=== PATIENT | female | born 1995 | race Hispanic/Latino ===

== ENCOUNTER → 2018-01-01 15:26 | Outpatient (CLI) | payer OTHER, SELFPAY ==
--- NOTE | 2018-01-01 15:27 | DI.US.S_ITS ---
PROCEDURE: US PELVIC COMPLETE INDICATIONS: bleeding with intercourse, left-sided pelvic pain TECHNIQUE: Real-time scanning was performed of the pelvic organs, with image documentation. Additional endovaginal scanning was necessary due to incomplete visualization of the adnexal and endometrial structures by transabdominal scanning. COMPARISON: [facility], , PELVIC COMPLETE, 03/07/2017, 8:37. FINDINGS: Transabdominal scanning: Limited scanning through the kidneys shows no hydronephrosis. No pathologic free abdominal or pelvic fluid. Endovaginal scanning: Uterus: Uterus is normal in size at 8.2 x 2.6 x 4.3 cm. no focal myometrial lesions are identified. Endometrial echo stripe measures approximately 3 mm in maximal combined thickness. An intrauterine contraceptive device is positioned within the endometrial cavity, which is noted to penetrate the endometrial cavity and extend into the myometrium to the right of midline within the mid fundal region. Ovaries: The right ovary measures 2.4 x 1.9 x 3.4 cm. The left ovary measures 2.0 x 1.7 x 3.5 cm. Both ovaries are normal in size without cystic or solid abnormality. IMPRESSION: 1. Intrauterine contraceptive device appears to extend into the myometrium to the right of midline without complete penetration through the entire thickness of the uterus. Please correct clinically. 2. No ovarian cysts or masses. Dictated by: Ignacio Holcomb M.D. on 01/01/2018 at 15:22 Approved by: Ignacio Holcomb M.D. on 01/01/2018 at 15:26
== END ==
PROVIDERS: Family Provider Family Medicine; PCP Family Medicine; Visit Provider Family Medicine
DX: N93.0 Postcoital and contact bleeding (principal); T83.32XA Displacement of intrauterine contraceptive device, initial encounter; R10.2 Pelvic and perineal pain
CPT/HCPCS: 76830; 76856

== ENCOUNTER → 2018-04-25 15:23 | Outpatient (CLI) | payer OTHER, SELFPAY ==
[2018-04-25 16:47] LABS: TSH w/ Reflex to FT4 2.15 uIU/mL (0.47-4.68)
[2018-04-25 17:05] LABS: Vitamin B12 561 pg/mL (239-931)
== END ==
PROVIDERS: PCP Family Medicine; Visit Provider Registered Nurse
DX: G62.9 Polyneuropathy, unspecified (principal)
CPT/HCPCS: 36415; 82607; 84443

== ENCOUNTER → 2018-08-01 09:47 | Outpatient (CLI) | payer OTHER, SELFPAY ==
[2018-08-01 10:13] LABS: Add Manual Diff / Slide Review NO; Basophils Absolute Auto 100 /uL (0-100); Basophils Percent Auto 0.9 % (0-2); Eosinophils Absolute Auto 200 /uL (0-450); Eosinophils Percent Auto 3.6 % (2-4); Hematocrit 43.5 % (36-46); Hemoglobin 15.1 g/dL (12.0-16.0); Lymphocytes Absolute Auto 1700 /uL (1100-4500); Lymphocytes Percent Auto 27.7 % (25-40); Mean Corpuscular HGB Conc 34.7 % (30-36); Mean Corpuscular Hemoglobin 31.7 PG (26-34); Mean Corpuscular Volume 91.3 fL (80-100); Monocytes Absolute Auto 700 /uL (0-900); Monocytes Percent Auto 11.7 % (3-14); Neutrophils Absolute Auto 3400 /uL (1500-7000); Neutrophils Percent Auto 56.1 % (50-75); Platelet Count 269 X10^3/uL (150-400); Red Blood Cell Count 4.76 X10^6/uL (4.0-5.2); Red Cell Distribution Width 13.4 % (11.6-14.8); White Blood Cell Count 6.1 X10^3/uL (4.5-11.0)
[2018-08-01 10:48] LABS: BUN Creatinine Ratio 13.8 (6-22); Blood Urea Nitrogen 11 mg/dL (7-17); Calcium 9.8 mg/dL (8.4-10.2); Carbon Dioxide 25 mmol/L (22-32); Chloride 101 mmol/L (98-107); Estimated Glomerular Filt Rate > 60.0 mL/min (>60); Glucose 96 mg/dL (70-100); HEMOLYSIS 27 (0-50); Potassium 4.1 mmol/L (3.4-5.1); Sodium 139 mmol/L (137-145)
== END ==
PROVIDERS: PCP Family Medicine; Visit Provider Registered Nurse
DX: R10.32 Left lower quadrant pain (principal)
CPT/HCPCS: 36415; 80048; 85025

== ENCOUNTER → 2018-08-01 10:17 | Outpatient (CLI) | payer OTHER, SELFPAY ==
--- NOTE | 2018-08-01 11:11 | DI.CT.S_ITS ---
PROCEDURE: CT ABDOMEN PELVIS W CON INDICATIONS: left lower quad pain TECHNIQUE: After the administration of oral and intravenous contrast, 5 mm thick sections acquired from the diaphragms to the symphysis. 5 mm thick coronal and sagittal reformats were performed. For radiation dose reduction, the following was used: automated exposure control, adjustment of mA and/or kV according to patient size. COMPARISON: None. FINDINGS: Image quality: Excellent. ABDOMEN: Lung bases: Lung bases are clear. Heart size is normal. Solid organs: Liver is normal in size and enhancement. Gallbladder is unremarkable. Biliary system is non-dilated. Pancreas enhances normally. Spleen is normal in size and enhancement. No adrenal nodules. Kidneys are normal in size and enhancement, without hydronephrosis. Peritoneum and bowel: Stomach, small bowel, and colon loops are normal in caliber and wall thickness. No free fluid or air. No abscess cavity. Normal appendix. Nodes and vessels: No retroperitoneal or mesenteric adenopathy. Aorta and inferior vena cava are normal in caliber. Miscellaneous: No ventral hernias. PELVIS: Genitourinary: Bladder wall thickness is normal. Miscellaneous: No inguinal hernias or adenopathy. Bones: No suspicious bony lesions. No vertebral body compression fractures. IMPRESSION: Unremarkable CT of the abdomen and pelvis with contrast. Dictated by: Willie Moore M.D. on 08/01/2018 at 11:32 Approved by: Willie Moore M.D. on 08/01/2018 at 11:34
== END ==
PROVIDERS: PCP Family Medicine; Visit Provider Registered Nurse
DX: R10.32 Left lower quadrant pain (principal)
CPT/HCPCS: 36415; 74177; 80048; 85025; Q9967

== ENCOUNTER → 2018-08-22 10:59 | Outpatient (CLI) | payer OTHER, SELFPAY ==
--- NOTE | 2018-08-22 11:00 | DI.RAD.S_ITS ---
PROCEDURE: XR CERVICAL SPINE 2V OR 3V INDICATIONS: Cervical spine pain. TECHNIQUE: 3 view(s) of the cervical spine were acquired. COMPARISON: None. FINDINGS: Bones: No fractures or dislocations to the C7 level. There is straightening of the normal cervical lordosis. The lateral masses of C1 appear intact on the odontoid view. No suspicious bony lesions. Soft tissues: No prevertebral soft tissue swelling. IMPRESSION: Straightening of the normal cervical lordosis, which can be positional or seen with muscle strain/spasm. No acute osseous abnormality of the cervical spine identified. Dictated by: Kristopher Del Rio M.D. on 08/22/2018 at 13:15 Approved by: Kristopher Del Rio M.D. on 08/22/2018 at 13:19
== END ==
PROVIDERS: PCP Family Medicine; Visit Provider Nurse Practitioner
DX: M54.2 Cervicalgia (principal)
CPT/HCPCS: 72040

== ENCOUNTER 2019-01-24 16:51 | Emergency (ER) | payer OTHER, SELFPAY ==
[2019-01-24 17:06] VITALS: BP 129/74; PULSE 86; RESP 20; TEMP 36.3; O2SAT 100; BMI 30.9
--- NOTE | 2019-01-24 17:20 | ED_ITS ---
HPI - Abdominal Pain <CARROLL Cline - Last Filed: 01/24/19 20:30> General Chief Complaint: Abdominal Pain Stated Complaint: Ectopic , sent by walk in clinic Time Seen by Provider: 01/24/19 16:55 Source: patient Mode of arrival: ambulatory Limitations: no limitations History of Present Illness HPI narrative: 24-year-old female sent from the walk-in clinic complaining of left lower abdominal pain for the past week with a positive urine test. She states the pain is a dull aching pressure 6/10 that is worse with movement slightly better with rest. The pain is been ongoing for the past week. Patient states she did not know that she was when she found out today and reports she has mixed emotions. Patient also reports 1/10 epigastric pain for the past 2 days. She denies any abdominal surgeries. Patient denies chest pain, shortness of breath, vaginal bleeding, vaginal discharge, vomiting, nausea, diarrhea, or dizziness. Related Data Home Medications Medication Instructions Recorded Confirmed MULTIVITAMIN 1 tab PO QDAY #0 tab 12/29/15 01/24/19 Previous Rx's Medication Instructions Recorded metaxalone 800 mg tablet 800 mg PO TID #14 tab 08/22/18 clonazepam 0.5 mg tablet 0.5 mg PO .qhs #30 tab 10/09/18 propranolol 10 mg tablet 10 mg PO TID #60 tab 10/09/18 L norgest/e.estradiol-e.estrad 1 tab PO DAILY #91 each 11/05/18 0.15 mg-30 mcg (84)/10 mcg(7) tabs,3mos Allergies Allergy/AdvReac Type Severity Reaction Status Date / Time No Known Drug Allergies Allergy Verified 01/24/19 16:28 Review of Systems <CARROLL Cline - Last Filed: 01/24/19 20:30> Review of Systems Narrative: REVIEW OF SYSTEMS: GENERAL: Denies fever, chills, malaise, or wt. loss. HENT: No head trauma, sore throat, or dysphagia. EYES: No loss of vision, double vision, eye pain, or irritation. CARDIOVASCULAR: No chest pain, palpitations, or orthopnea. RESPIRATORY: No shortness of breath or cough. GASTROINTESTINAL: Complains of left lower quadrant abdominal pain, positive test in the walk-in clinic, see HPI GENITOURINARY: No flank pain, urinary incontinence, hesitancy, frequency, or dysuria. No vaginal discharge or dyspareunia. Denies concerns for STIs MUSCULOSKELETAL: No pain, weakness, or trauma. INTEGUMENTARY: No rash, lesions, or pruritus. NEURO: No numbness, tingling, memory loss, confusion, or headaches. PSYCH: No behavior or mood changes. PFSH <CARROLL Cline - Last Filed: 01/24/19 20:30> Medical History Hemorrhoids (Resolved) Surgical History Anesthesia (Inactive) Status post hemorrhoidectomy (Resolved 07/2016) Family History Brother No problems noted. Father No problems noted. Mother No problems noted. Sister No problems noted. Sister No problems noted. Social History Smoking Status: Former smoker alcohol intake: current (occasionally) substance use type: does not use Family History Brother No problems noted. Father No problems noted. Mother No problems noted. Sister No problems noted. Sister No problems noted. Social History Smoking Status: Former smoker alcohol intake: current (occasionally) substance use type: does not use Exam <CARROLL Cline - Last Filed: 01/24/19 20:30> Initial Vital Signs Initial Vital Signs: Vital Signs Temperature 97.4 F L 01/24/19 17:06 Pulse Rate 86 01/24/19 17:06 Respiratory Rate 20 01/24/19 17:06 Blood Pressure 129/74 01/24/19 17:06 Pulse Oximetry 100 01/24/19 17:06 PHYSICAL EXAMINATION: GENERAL: Well groomed, alert, and cooperative. Patient is tearful during exam. Answers questions promptly and appropriately. Vital signs noted. HENT: Normocephalic, atraumatic. Hearing intact. Oral mucosa is pink and moist. EYES: Conjunctiva pink, sclera white, no periorbital swelling. CARDIOVASCULAR: S1 and S2 sounds normal. Regular rate and rhythm, no murmurs, clicks, or bruits. No pedal edema. RESPIRATORY: Normal respiratory rate, trachea midline, airway patent. No stridor, nasal flaring or accessory muscle use. Lungs are clear in all blackman without wheeze, rhonchi, or crackles. GASTROINTESTINAL: Bowel sounds normoactive. Abdomen is soft, significant left lower quadrant tenderness to palpation. No organomegaly, no palpable masses. GENITALURINARY: No flank tenderness. MUSCULOSKELETAL: Normal gait and coordination. Equal tone and mass bilaterally. EXTREMITIES: CMS intact, no pedal edema. SKIN: Warm, dry, soft, appropriate color for ethnicity. No lesions, rashes, or wounds. NEURO: Alert and Oriented X 3. Good coordination. No ataxia, or sensory deficits, or cognitive issues. PSYCH: Appropriate affect and mood. <Carey Hollis DO - Last Filed: 01/25/19 08:24> Initial Vital Signs Initial Vital Signs: Vital Signs Temperature 97.4 F L 01/24/19 17:06 Pulse Rate 86 01/24/19 17:06 Respiratory Rate 20 01/24/19 17:06 Blood Pressure 129/74 01/24/19 17:06 Pulse Oximetry 100 01/24/19 17:06 Course <CARROLL Cline - Last Filed: 01/24/19 20:30> Orders Ordered: Discontinued Medications Metoprolol Tartrate (Lopressor) 5 mg IV NOW ONE Stop: 01/24/19 18:09 Last Admin: 01/24/19 18:13 Dose: Not Given Documented by: JPATTIS Consultations Consultation #1: Consultation with Dr. Hermosillo, he agreed that patient is safe to send home and needs serial HCG levels remeasured in the next 3 days. He stated an ectopic cannot be ruled out for another 18 days with a HCG level is >2000. Time: 18:45 Vital Signs Vital signs: Vital Signs - 8 hr 01/24/19 17:06 01/24/19 19:05 Temperature 97.4 F L Pulse Rate 86 69 Respiratory Rate 20 20 Blood Pressure 129/74 136/85 Pulse Oximetry 100 100 <Carey Hollis DO - Last Filed: 01/25/19 08:24> Orders Ordered: Discontinued Medications Metoprolol Tartrate (Lopressor) 5 mg IV NOW ONE Stop: 01/24/19 18:09 Last Admin: 01/24/19 18:13 Dose: Not Given Documented by: AZEEM Vital Signs Vital signs: Vital Signs - 8 hr 01/24/19 17:06 01/24/19 19:05 Temperature 97.4 F L Pulse Rate 86 69 Respiratory Rate 20 20 Blood Pressure 129/74 136/85 Pulse Oximetry 100 100 MDM - Abdominal Pain <CARROLL Cline - Last Filed: 01/24/19 20:30> Medical Records Attestation: I reviewed the patient's medical records. Lab Data Attestation: I reviewed the patient's lab results. Result diagrams: 01/24/19 17:30 01/24/19 17:30 Labs: Lab Results 01/24/19 01/24/19 01/24/19 Range/Units 17:30 17:30 17:30 WBC 10.8 (4.5-11.0) X10^3/uL RBC 4.48 (4.0-5.2) X10^6/uL Hgb 14.1 (12.0-16.0) g/dL Hct 40.5 (36-46) % MCV 90.3 (80-100) fL MCH 31.4 (26-34) PG MCHC 34.7 (30-36) % RDW 12.7 (11.6-14.8) % Plt Count 279 (150-400) X10^3/uL Neut % (Auto) 57.8 (50-75) % Lymph % (Auto) 31.0 (25-40) % Carroll % (Auto) 7.4 (3-14) % Eos % (Auto) 2.6 (2-4) % Baso % (Auto) 1.2 (0-2) % Neut # (Auto) 6300 (1955-4759) /uL Lymph # (Auto) 3400 (7478-8098) /uL Carroll # (Auto) 800 (0-900) /uL Eos # (Auto) 300 (0-450) /uL Baso # (Auto) 100 (0-100) /uL Sodium 139 (137-145) mmol/L Potassium 4.0 (3.4-5.1) mmol/L Chloride 104 (98-107) mmol/L Carbon Dioxide 24 (22-32) mmol/L BUN 14 (7-17) mg/dL Creatinine 0.70 (0.52-1.04) mg/dL Estimated GFR > 60.0 (>60) mL/min BUN/Creatinine Ratio 20.0 (6-22) Glucose 102 H (70-100) mg/dL Calcium 9.4 (8.4-10.2) mg/dL Total Bilirubin 0.3 (0.2-1.3) mg/dL AST 20 (14-36) IU/L ALT 21 (9-52) IU/L Alkaline Phosphatase 57 (38-126) U/L Total Protein 7.6 (6.3-8.2) g/dL Albumin 4.5 (3.5-5.0) g/dL Globulin 3.1 (1.7-4.1) g/dL Albumin/Globulin Ratio 1.5 (1.0-2.8) Lipase 88 (23-300) U/L HCG, Quant 59.90 mIU/mL Blood Type O Positive Point of care testing: Point of Care Testing Test Results Negative Urine Dip Bedside Urine Glucose Negative Bedside Urine Bilirubin - Negative Bedside Urine Ketone - Negative Urine Specific [place] 1.010 Bedside Urine Occult Blood - Negative Bedside Urine pH 7 Bedside Urine Protein - Negative Bedside Urine Urobilinogen - Negative Bedside Urine Nitrite - Negative Bedside Urine Leukocytes +/- 15 Esterase Imaging Data Pelvic US: Radiologist's impression: [address] [address] Ultrasound Report Signed Patient: Jayda Galicia [facility]#: [id number] : 1995Acct:[id number] Age/Sex: 24 / FDate of Service: 01/24/19 Loc: ED Accession Number: [id number] Procedure: US pelvic complete Ordering Provider: Mariella Arboleda PROCEDURE: US PELVIC COMPLETE INDICATIONS: LEFT PELVIC PAIN; POSITIVE URINE TECHNIQUE: Real-time scanning was performed of the pelvic organs, with image documentation. Additional endovaginal scanning was necessary due to incomplete visualization of the adnexal and endometrial structures by transabdominal scanning. COMPARISON: [facility], , US PELVIC COMPLETE, 01/01/2018, 15:44. [facility], , PELVIC COMPLETE, 03/07/2017, 8:37. FINDINGS: Transabdominal scanning: Limited scanning through the kidneys shows no hydronephrosis. No pathologic free abdominal or pelvic fluid. Endovaginal scanning: Uterus: Uterus is normal in size at 3.8 x 5.3 x 7.9 cm. The endometrium measures 15.3 mm, hyperplastic, in combined thickness. Ovaries: The right ovary measures 4.0 x 3.5 x 3.4 cm and contains a complex cyst measuring up to 2.9 x 2.6 x 2.7 cm with elevated internal peripheral vascularity. The left ovary measures 2.9 x 1.7 x 1.4 cm. IMPRESSION: An intrauterine gestation is not seen. There is an abnormal complex cystic structure measuring up to 2.9 cm and with increased peripheral vascularity along its margins, in the setting of any asymmetrically enlarged right ovary. This could represent a ectopic in early phase of development. Please correlate with quantitative beta-hCG. Ectopic has not been excluded as cause of this appearance. Dictated by: Barrett Thomson M.D. on 01/24/2019 at 18:36 Approved by: Barrett Thomson M.D. on 01/24/2019 at 18:43 MDM Narrative Medical decision making narrative: Differential includes miscarriage, viable , and ectopic , further HCG monitoring is needed to determine exactly the cause of her symptoms. Additional differential includes ovarian cyst (as noted on ultrasound-however this med on the right side). Less likely infection (normal CBC, afebrile), less likely gallbladder (normal lipase, normal liver enzymes), less likely PID (no complaints of vaginal discharge, no complains of lower pelvic pain), less likely urinary tract infection (negative blood or white blood cells on POC urine dip). <Carey Hollis DO - Last Filed: 01/25/19 08:24> Lab Data Attestation: I reviewed the patient's lab results. Labs: Lab Results 01/24/19 01/24/19 01/24/19 Range/Units 17:30 17:30 17:30 WBC 10.8 (4.5-11.0) X10^3/uL RBC 4.48 (4.0-5.2) X10^6/uL Hgb 14.1 (12.0-16.0) g/dL Hct 40.5 (36-46) % MCV 90.3 (80-100) fL MCH 31.4 (26-34) PG MCHC 34.7 (30-36) % RDW 12.7 (11.6-14.8) % Plt Count 279 (150-400) X10^3/uL Neut % (Auto) 57.8 (50-75) % Lymph % (Auto) 31.0 (25-40) % Carroll % (Auto) 7.4 (3-14) % Eos % (Auto) 2.6 (2-4) % Baso % (Auto) 1.2 (0-2) % Neut # (Auto) 6300 (5296-0199) /uL Lymph # (Auto) 3400 (3162-9478) /uL Carroll # (Auto) 800 (0-900) /uL Eos # (Auto) 300 (0-450) /uL Baso # (Auto) 100 (0-100) /uL Sodium 139 (137-145) mmol/L Potassium 4.0 (3.4-5.1) mmol/L Chloride 104 (98-107) mmol/L Carbon Dioxide 24 (22-32) mmol/L BUN 14 (7-17) mg/dL Creatinine 0.70 (0.52-1.04) mg/dL Estimated GFR > 60.0 (>60) mL/min BUN/Creatinine Ratio 20.0 (6-22) Glucose 102 H (70-100) mg/dL Calcium 9.4 (8.4-10.2) mg/dL Total Bilirubin 0.3 (0.2-1.3) mg/dL AST 20 (14-36) IU/L ALT 21 (9-52) IU/L Alkaline Phosphatase 57 (38-126) U/L Total Protein 7.6 (6.3-8.2) g/dL Albumin 4.5 (3.5-5.0) g/dL Globulin 3.1 (1.7-4.1) g/dL Albumin/Globulin Ratio 1.5 (1.0-2.8) Lipase 88 (23-300) U/L HCG, Quant 59.90 mIU/mL Blood Type O Positive Point of care testing: Point of Care Testing Test Results Negative Urine Dip Bedside Urine Glucose Negative Bedside Urine Bilirubin - Negative Bedside Urine Ketone - Negative Urine Specific [place] 1.010 Bedside Urine Occult Blood - Negative Bedside Urine pH 7 Bedside Urine Protein - Negative Bedside Urine Urobilinogen - Negative Bedside Urine Nitrite - Negative Bedside Urine Leukocytes +/- 15 Esterase MDM Narrative Medical decision making narrative: Case discussed, imaging and lab work reviewed. Patient has possible early ectopic. None noted on US. 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 Patient given return precautions. Discharge Plan Departure Patient Disposition: Home Clinical Impression: Abdominal pain Qualifiers: Abdominal location: left upper quadrant Qualified Code(s): R10.12 - Left upper quadrant pain Qualifiers: Weeks of gestation: less than 8 weeks Qualified Code(s): Z3A.01 - Less than 8 weeks gestation of Discharge Date/Time: 01/24/19 19:05 Instructions: DI for Ectopic Activity Restrictions/Additional Instructions: Thank you for entrusting me with your care today. As discussed, we are unable to tell exactly if you are having an ectopic , a viable , or miscarriage at this time. Further blood testing and possible imaging are requir ed. Please follow-up with the OB doctor listed below in the next 3 days for repeat HCG levels. Return to the emergency department if he develops severe abdominal pain, chest pain, shortness of breath, dizziness, high fevers, or other concerning symptoms. Prescriptions: No Action clonazepam 0.5 mg tablet 0.5 mg PO .qhs Qty: 30 RF: 0 propranolol 10 mg tablet 10 mg PO TID Qty: 60 RF: 2 MULTIVITAMIN 1 tab PO QDAY Qty: 0 RF: 0 L norgest/e.estradiol-e.estrad [Ashlyna] 0.15 mg-30 mcg (84)/10 mcg (7) tablets,dose pack,3 month 1 tab PO DAILY Qty: 91 RF: 3 metaxalone [Skelaxin] 800 mg tablet 800 mg PO TID Qty: 14 RF: 0 Referrals: Mallory Saucedo MD [Physician] - (LUQ pain, F/u for possible ectopic. ) Shasha Alegria MD [Primary Care Provider] -
[2019-01-24 17:49] LABS: Add Manual Diff / Slide Review NO; Basophils Absolute Auto 100 /uL (0-100); Basophils Percent Auto 1.2 % (0-2); Eosinophils Absolute Auto 300 /uL (0-450); Eosinophils Percent Auto 2.6 % (2-4); Hematocrit 40.5 % (36-46); Hemoglobin 14.1 g/dL (12.0-16.0); Lymphocytes Absolute Auto 3400 /uL (1100-4500); Mean Corpuscular HGB Conc 34.7 % (30-36); Mean Corpuscular Hemoglobin 31.4 PG (26-34); Mean Corpuscular Volume 90.3 fL (80-100); Monocytes Absolute Auto 800 /uL (0-900); Monocytes Percent Auto 7.4 % (3-14); Neutrophils Absolute Auto 6300 /uL (1500-7000); Neutrophils Percent Auto 57.8 % (50-75); Platelet Count 279 X10^3/uL (150-400); Red Blood Cell Count 4.48 X10^6/uL (4.0-5.2); Red Cell Distribution Width 12.7 % (11.6-14.8); White Blood Cell Count 10.8 X10^3/uL (4.5-11.0)
[2019-01-24 18:08] LABS: Alanine Aminotransferase 21 IU/L (9-52); Albumin 4.5 g/dL (3.5-5.0); Albumin Globulin Ratio 1.5 (1.0-2.8); Alkaline Phosphatase 57 U/L (38-126); Aspartate Aminotransferase 20 IU/L (14-36); Bilirubin Total 0.3 mg/dL (0.2-1.3); Blood Urea Nitrogen 14 mg/dL (7-17); Calcium 9.4 mg/dL (8.4-10.2); Carbon Dioxide 24 mmol/L (22-32); Chloride 104 mmol/L (98-107); Estimated Glomerular Filt Rate > 60.0 mL/min (>60); Globulin 3.1 g/dL (1.7-4.1); Glucose 102 mg/dL (70-100); HEMOLYSIS < 15 (0-50); Lipase 88 U/L (23-300); Sodium 139 mmol/L (137-145); Total Protein 7.6 g/dL (6.3-8.2)
[2019-01-24 19:05] VITALS: BP 136/85; PULSE 69; RESP 20; O2SAT 100
== END 2019-01-24 19:05 | disposition home or self-care (01) ==
PROVIDERS: Emergency Provider Nurse Practitioner; PCP Family Medicine
DX: O26.891 Other specified pregnancy related conditions, first trimester (principal); R10.12 Left upper quadrant pain; Z3A.01 Less than 8 weeks gestation of pregnancy
CPT/HCPCS: 36415; 76830; 76856; 80053; 81003; 81025; 83690; 84702; 85025; 86900; 86901; 99282; 99284

== ENCOUNTER → 2019-01-28 08:58 | Outpatient (CLI) | payer OTHER, SELFPAY | PROVIDERS: PCP Family Medicine; Visit Provider Specialist | DX: R10.9 Unspecified abdominal pain (principal); Z34.90 Encounter for supervision of normal pregnancy, unspecified, unspecified trimester | CPT/HCPCS: 36415; 84702 ==

== ENCOUNTER → 2019-02-14 09:53 | Outpatient (CLI) | payer OTHER, SELFPAY ==
[2019-02-14 10:30] LABS: Hematocrit 40.6 % (36-46); Hemoglobin 13.8 g/dL (12.0-16.0)
== END ==
PROVIDERS: PCP Family Medicine
DX: N92.0 Excessive and frequent menstruation with regular cycle (principal); O02.1 Missed abortion
CPT/HCPCS: 36415; 85014; 85018

== ENCOUNTER → 2019-06-06 13:43 | Outpatient (CLI) | payer OTHER, SELFPAY ==
[2019-06-06 16:19] LABS: Hepatitis B Surface Antigen NEGATIVE s/c (NEGATIVE)
[2019-06-06 16:28] LABS: HIV 1 & 2 Ab/Ag 4th Gen Combo NEGATIVE (NEGATIVE)
[2019-06-06 16:42] LABS: Hep C Virus Ab w/Reflex Quant NEGATIVE s/c (NEGATIVE)
[2019-06-06 16:53] LABS: Urine N gonorrhoeae NOT DETECTED
[2019-06-06 16:59] LABS: Urine Chlamydia NOT DETECTED
[2019-06-08 13:35] LABS: HSV 1 IgM Screen Negative (Negative); HSV 2 IgM Screen Negative (Negative)
[2019-06-08 20:38] LABS: RPR Screen Nonreactive (Nonreactive)
== END ==
PROVIDERS: PCP Family Medicine; Visit Provider Nurse Practitioner Family
DX: Z20.2 Contact with and (suspected) exposure to infections with a predominantly sexual mode of transmission (principal); N89.8 Other specified noninflammatory disorders of vagina; N76.0 Acute vaginitis; B96.89 Other specified bacterial agents as the cause of diseases classified elsewhere
CPT/HCPCS: 36415; 86592; 86695; 86696; 86803; 87210; 87340; 87389; 87491; 87591

== ENCOUNTER → 2019-07-20 15:34 | Outpatient (CLI) | payer OTHER, SELFPAY | PROVIDERS: PCP Nurse Practitioner Family; Visit Provider Physician Assistant | DX: N39.0 Urinary tract infection, site not specified (principal) | CPT/HCPCS: 87077; 87086; 87186 ==

== ENCOUNTER → 2019-08-31 17:32 | Outpatient (CLI) | payer OTHER, SELFPAY ==
[2019-08-31 21:05] LABS: Urine N gonorrhoeae NOT DETECTED
[2019-08-31 21:18] LABS: Urine Chlamydia NOT DETECTED
== END ==
PROVIDERS: PCP Nurse Practitioner Family; Visit Provider Physician Assistant
DX: N39.0 Urinary tract infection, site not specified (principal); N89.8 Other specified noninflammatory disorders of vagina
CPT/HCPCS: 87077; 87086; 87186; 87210; 87491; 87591

== ENCOUNTER → 2019-09-23 15:47 | Outpatient (CLI) | payer OTHER, SELFPAY ==
--- NOTE | 2019-09-23 15:51 | DI.US.S_ITS ---
PROCEDURE: US PELVIC COMPLETE INDICATIONS: LT PELVIC PAIN TECHNIQUE: Real-time scanning was performed of the pelvic organs, with image documentation. Additional endovaginal scanning was necessary due to incomplete visualization of the adnexal and endometrial structures by transabdominal scanning. COMPARISON: [facility], US, US PELVIC COMPLETE, 02/14/2019, 10:30. FINDINGS: Transabdominal scanning: Limited scanning through the kidneys shows no hydronephrosis. No pathologic free abdominal or pelvic fluid. Endovaginal scanning: Uterus: Uterus is normal in size at 5.4 x 3.5 x 4.4 cm. The endometrium measures 6 mm in combined thickness. An IUD is seen. The body of the IUD appears to be within the cervix. A part of the horizontal portion of the IUD can be seen obliquely within the lower uterine segment. Ovaries: The right ovary measures 3.2 x 2.6 x 2.9 cm. The left ovary measures 2.7 x 1.5 x 2.9 cm. The ovaries have a normal sonographic appearance, with normal appearing cystic follicles seen on each side. No adnexal masses are seen. Normal appearing arterial and venous flow is confirmed to each ovary. IMPRESSION: Inferior placement of the IUD, with a portion of the horizontal part of the IUD seen oblique within the lower uterine segment, which may be related to a presenting clinical history of pelvic pain. Dictated by: Marcos Juárez M.D. on 09/23/2019 at 16:33 Approved by: Marcos Juárez M.D. on 09/23/2019 at 16:36
== END ==
PROVIDERS: PCP Nurse Practitioner Family; Referring Provider Nurse Practitioner Family; Visit Provider Nurse Practitioner Family
DX: R10.2 Pelvic and perineal pain (principal); N94.10 Unspecified dyspareunia; Z97.5 Presence of (intrauterine) contraceptive device
CPT/HCPCS: 76830; 76856; 87210

== ENCOUNTER → 2020-03-27 12:26 | Outpatient (CLI) | payer OTHER, SELFPAY ==
[2020-03-30 07:36] LABS: COVID19 Sendout Not Detected (Not Detect)
== END ==
PROVIDERS: PCP Nurse Practitioner Family; Visit Provider Physician Assistant
DX: Z11.59 Encounter for screening for other viral diseases (principal)
CPT/HCPCS: 87635

== ENCOUNTER → 2020-07-07 12:03 | Outpatient (CLI) | payer BC, SELFPAY ==
[2020-07-07 12:29] LABS: COVID19 -Nasal RAPID POSITIVE (Negative)
== END ==
PROVIDERS: PCP Nurse Practitioner Family; Visit Provider Physician Assistant
DX: U07.1 COVID-19 (principal)
CPT/HCPCS: 87635

== ENCOUNTER → 2020-07-21 12:36 | Outpatient (CLI) | payer BC, SELFPAY ==
[2020-07-21 14:00] LABS: Add Manual Diff / Slide Review NO; Appearance Urine UA CLEAR; Basophils Absolute Auto 100 /uL (0-100); Basophils Percent Auto 0.8 % (0-2); Bilirubin Urine UA NEGATIVE (NEGATIVE); Color Urine UA YELLOW; Eosinophils Absolute Auto 100 /uL (0-450); Eosinophils Percent Auto 1.4 % (2-4); Glucose Urine UA NEGATIVE (Negative); Hematocrit 37.8 % (36-46); Hemoglobin 13.1 g/dL (12.0-16.0); Ketones Urine UA NEGATIVE (NEGATIVE); Leukocyte Esterase Urine UA NEGATIVE (NEGATIVE); Lymphocytes Absolute Auto 3300 /uL (1100-4500); Lymphocytes Percent Auto 31.2 % (25-40); Mean Corpuscular HGB Conc 34.6 % (30-36); Mean Corpuscular Hemoglobin 31.6 PG (26-34); Mean Corpuscular Volume 91.2 fL (80-100); Monocytes Absolute Auto 900 /uL (0-900); Monocytes Percent Auto 8.5 % (3-14); Neutrophils Absolute Auto 6200 /uL (1500-7000); Neutrophils Percent Auto 58.1 % (50-75); Nitrite Urine UA NEGATIVE (Negative); Occult Blood Urine UA NEGATIVE (Negative); Platelet Count 270 X10^3/uL (150-400); Protein Urine UA NEGATIVE (Negative); Red Blood Cell Count 4.14 X10^6/uL (4.0-5.2); Red Cell Distribution Width 12.5 % (11.6-14.8); Urobilinogen Urine UA 0.2 E.U./dL (0.2); White Blood Cell Count 10.7 X10^3/uL (4.5-11.0)
[2020-07-22 07:34] LABS: Varicella IgG Antibody <135 index (Immune >165)
[2020-07-22 08:30] LABS: RPR Screen Non Reactive (Non Reactive)
[2020-07-23 16:08] LABS: Hepatitis B Surface Antigen NEGATIVE s/c (NEGATIVE); Rubella Antibody IgG 10.3 IU/mL (>15)
[2020-07-23 16:37] LABS: HIV 1 & 2 Ab/Ag 4th Gen Combo NEGATIVE (NEGATIVE); Hep C Virus Ab w/Reflex Quant NEGATIVE s/c (NEGATIVE)
== END ==
PROVIDERS: PCP Nurse Practitioner Family; Referring Provider Specialist; Visit Provider Specialist
DX: Z34.81 Encounter for supervision of other normal pregnancy, first trimester (principal)
CPT/HCPCS: 36415; 80055; 81003; 86787; 86803; 86850; 86900; 86901; 87086; 87389

== ENCOUNTER → 2020-09-15 10:41 | Outpatient (CLI) | payer BC, SELFPAY ==
[2020-09-17 20:07] LABS: AFP, Serum 39.4 ng/mL (.); Calc Gestational Age Ultrasound (.); Inhibin A, Dimeric 184.13 pg/mL (.); Inhibin A, MoM 1.36 (.); Maternal Ethnicity Other (.); Maternal Weight 186 lbs (.); Number of Fetuses No (.); OSBR Risk 1 IN 8933 (.); Results Report (.); Test Results *Screen Negative* (.); hCG, MoM 2.13 (.); hCG, Serum 57314 mIU/mL (.)
== END ==
PROVIDERS: PCP Nurse Practitioner Family; Referring Provider Specialist; Visit Provider Specialist
DX: Z34.82 Encounter for supervision of other normal pregnancy, second trimester (principal); Z3A.17 17 weeks gestation of pregnancy
CPT/HCPCS: 36415; 82105; 82677; 84702; 86336

== ENCOUNTER → 2020-10-07 09:07 | Outpatient (CLI) | payer BC, SELFPAY ==
--- NOTE | 2020-10-07 09:08 | DI.US.S_ITS ---
PROCEDURE: US OB >= 14 WEEKS FETUS INDICATIONS: ANATOMY OUTSIDE/PRIOR DATING DATA: Last menstrual period (LMP): 05/17/2020. LMP-based estimated date of delivery (ZENA): 02/21/2021. First dating scan (date and location): 07/21/2020. Estimated date of delivery (ZENA) from first dating scan: 02/22/2021. TECHNIQUE: Real-time scanning was performed of the fetus, with image documentation and biometric measurements. Endovaginal scanning: Not performed. COMPARISON: [facility], , OB >= 14 WEEKS FETUS, 09/15/2020, 9:38. FINDINGS: General: A single living intrauterine gestation is present. Presentation: Variable. Placenta: Placental position is anterior, without previa. Amniotic fluid index: 16.3 cm, normal range is 5-24 cm. heart rate: 153 beats per minute. Maternal cervical canal: 4.5 cm long. Normal lower limit is 2.5 cm. biometrics: Biparietal diameter: 4.9 cm, 20 weeks 5 days Head circumference: 18.1 cm, 20 weeks 3 days Abdominal circumference: 16.4 cm, 21 weeks 3 days Femur length: 3.3 cm, 20 weeks 3 days Estimated gestational age from initial scan: 20 weeks 2 days Composite gestational age from present scan: 20 weeks 5 days Estimated weight and percentile: 387 g, 80th percentile Measurement variability for biometric dating: +/- 7 days from 14 weeks to 15 weeks 6 days gestation, +/- 10 days from 16 weeks to 21 weeks 6 days gestation, +/- 2 weeks from 22 weeks to 27 weeks 6 days gestation, +/- 3 weeks for 28 weeks gestation or later. weight reference: 4500 g or EFW >90/95% is considered macrosomia or large for gestational age. EFW <10% is small for gestational age. EFW 5% or less is considered intra-uterine growth restriction. Anatomic survey: Neuro: Ventricles are non-dilated at less than 10 mm. Cisterna magna is normal at 3-11 mm. Cerebellum is normal in size and morphology. Nuchal skin fold: Normal at less than 6 mm between 14-21 weeks gestational age. Face: Nose and lips, facial profile are normal. Spine: No evidence for spina bifida. Heart: 4-chambered heart is present, with normal ventricular outflow tracts. Diaphragm: Diaphragm is intact. Stomach: Left-sided stomach is present. Kidneys: No hydronephrosis. Normal is less than 5 mm in 2nd trimester, less than 7 mm in 3rd trimester. Cord: 3-vessel cord has orthotopic insertion. Bladder: Normal in size. Extremities: All 4 extremities identified. IMPRESSION: 1. Grewal living intrauterine at 20 weeks 5 days based on today's ultrasound. This is concordant with the prior ultrasound. Fetus is in the 80th percentile for weight. 2. Normal placenta and amniotic fluid. 3. Normal and complete anatomic survey. Dictated by: Leno Liz M.D. on 10/12/2020 at 15:16 Approved by: Leno Liz M.D. on 10/12/2020 at 15:20
== END ==
PROVIDERS: PCP Nurse Practitioner Family; Referring Provider Specialist; Visit Provider Specialist
DX: Z34.82 Encounter for supervision of other normal pregnancy, second trimester (principal); Z3A.20 20 weeks gestation of pregnancy
CPT/HCPCS: 76811

== ENCOUNTER → 2020-11-13 09:19 | Outpatient (CLI) | payer BC, SELFPAY ==
[2020-11-13 12:10] LABS: Hematocrit 36.5 % (36-46); Hemoglobin 12.4 g/dL (12.0-16.0)
[2020-11-17 08:10] LABS: GTT (PREG) 1 Hour PP 50gm Dose 101 mg/dL (76-139)
== END ==
PROVIDERS: PCP Nurse Practitioner Family; Referring Provider Specialist; Visit Provider Specialist
DX: Z34.82 Encounter for supervision of other normal pregnancy, second trimester (principal); Z3A.25 25 weeks gestation of pregnancy
CPT/HCPCS: 36415; 82950; 85014; 85018

== ENCOUNTER → 2020-11-24 11:32 | Outpatient (CLI) | payer BC, SELFPAY ==
[2020-11-24 13:53] LABS: Add Manual Diff / Slide Review NO; Basophils Absolute Auto 0 /uL (0-100); Basophils Percent Auto 0.4 % (0-2); Eosinophils Absolute Auto 200 /uL (0-450); Eosinophils Percent Auto 1.7 % (2-4); Hematocrit 38.1 % (36-46); Hemoglobin 13.2 g/dL (12.0-16.0); Lymphocytes Absolute Auto 2500 /uL (1100-4500); Lymphocytes Percent Auto 20.6 % (25-40); Mean Corpuscular HGB Conc 34.6 % (30-36); Mean Corpuscular Hemoglobin 32.2 PG (26-34); Monocytes Absolute Auto 900 /uL (0-900); Monocytes Percent Auto 7.3 % (3-14); Neutrophils Absolute Auto 8400 /uL (1500-7000); Platelet Count 251 X10^3/uL (150-400); Red Cell Distribution Width 13.6 % (11.6-14.8)
[2020-11-24 14:55] LABS: Alanine Aminotransferase 41 IU/L (<35); Aspartate Aminotransferase 27 IU/L (14-36); BUN Creatinine Ratio 9.8 (6-22); Blood Urea Nitrogen 5 mg/dL (7-17); Estimated Glomerular Filt Rate > 60.0 mL/min (>60); Uric Acid 3.2 mg/dL (2.5-6.2)
== END ==
PROVIDERS: PCP Nurse Practitioner Family; Referring Provider Specialist; Visit Provider Specialist
DX: O16.2 Unspecified maternal hypertension, second trimester (principal)
CPT/HCPCS: 36415; 82565; 84450; 84460; 84520; 84550; 85025

== ENCOUNTER 2020-12-24 10:39 | Observation (INO) | payer BC, SELFPAY ==
--- NOTE | 2020-12-24 10:54 | DI.US.S_ITS ---
PROCEDURE: US OB LIMITED INDICATIONS: BIOPHYSICAL PROFILE. GROWTH. CORD DOPPLERS. OUTSIDE/PRIOR DATING DATA: Last menstrual period (LMP): 05/17/20 . LMP-based estimated date of delivery (ZENA): 02/21/21 . First dating scan (date and location): 07/21/20 . Estimated date of delivery (ZENA) from first dating scan: 02/22/21 . TECHNIQUE: Real-time scanning was performed of the fetus, with image documentation and biometric measurements. Endovaginal scanning: Not needed. COMPARISON: None. FINDINGS: General: A single living intrauterine gestation is present. Presentation: Vertex. Placenta: Placental position is anterior , without previa. Amniotic fluid index: 9.9 cm, normal range is 5-24 cm. heart rate: 131 beats per minute. Maternal cervical canal: 5.8 cm long. Normal lower limit is 2.5 cm. biometrics: Biparietal diameter: 8.1 cm, 32 weeks 4 days Head circumference: 29.6 cm, 32 weeks 5 days Abdominal circumference: 26.9 cm, 31 weeks 0 days Femur length: 6.0 cm, 31 weeks 2 days Estimated gestational age from initial scan: 31 weeks 3 days Composite gestational age from present scan: 31 weeks 6 days Estimated weight and percentile: 1757 g, 37th percentile Measurement variability for biometric dating: +/- 7 days from 14 weeks to 15 weeks 6 days gestation, +/- 10 days from 16 weeks to 21 weeks 6 days gestation, +/- 2 weeks from 22 weeks to 27 weeks 6 days gestation, +/- 3 weeks for 28 weeks gestation or later. weight reference: 4500 g or EFW >90/95% is considered macrosomia or large for gestational age. EFW <10% is small for gestational age. EFW 5% or less is considered intra-uterine growth restriction. Other: Biophysical profile performed, 8 of 8 possible points. Normal umbilical artery systolic/diastolic ratios of 3.0, 2.7, 3.1. IMPRESSION: Appropriate interval growth, no anomaly seen. Eight of 8 possible points for the biophysical profile. Normal umbilical artery systolic/diastolic ratios. Dictated by: Barrett Thomson M.D. on 12/24/2020 at 12:18 Approved by: Barrett Thomson M.D. on 12/24/2020 at 12:21
[2020-12-24 13:18] LABS: Add Manual Diff / Slide Review NO; Basophils Absolute Auto 100 /uL (0-100); Basophils Percent Auto 0.6 % (0-2); Eosinophils Absolute Auto 200 /uL (0-450); Eosinophils Percent Auto 1.5 % (2-4); Hematocrit 35.6 % (36-46); Hemoglobin 12.3 g/dL (12.0-16.0); Lymphocytes Absolute Auto 2600 /uL (1100-4500); Lymphocytes Percent Auto 22.6 % (25-40); Mean Corpuscular HGB Conc 34.5 % (30-36); Mean Corpuscular Hemoglobin 31.9 PG (26-34); Mean Corpuscular Volume 92.6 fL (80-100); Monocytes Absolute Auto 900 /uL (0-900); Neutrophils Absolute Auto 7700 /uL (1500-7000); Neutrophils Percent Auto 67.3 % (50-75); Platelet Count 160 X10^3/uL (150-400); Red Blood Cell Count 3.85 X10^6/uL (4.0-5.2); Red Cell Distribution Width 13.2 % (11.6-14.8); White Blood Cell Count 11.4 X10^3/uL (4.5-11.0)
[2020-12-24 13:20] VITALS: BP 173/89
[2020-12-24] MEDS: LABETALOL 100 MG TABLET 200 MG PO (13:20)
[2020-12-24 13:31] LABS: Aspartate Aminotransferase 34 IU/L (14-36); BUN Creatinine Ratio 25.8 (6-22); Blood Urea Nitrogen 17 mg/dL (7-17); Estimated Glomerular Filt Rate > 60.0 mL/min (>60); Uric Acid 6.4 mg/dL (2.5-6.2)
--- NOTE | 2020-12-24 13:43 | PM.OBTRLD ---
Visit Information Visit Information Date of evaluation: 12/24/20 Primary OB Provider: ED* *Temp On-call OB Provider: Oscar Stark Reason for Evaluation: Yes other Comments/Additional reasons for admission: Gestational hypertension w/ severe features, R/O PEC w/ severe features Jayda is a 25-year-old A1 at 30 1+4 weeks gestational age by good 1st trimester ultrasound dating who presents to [facility] for evaluation after noting significant blood pressure elevations earlier today while at home. Her course has been marked by COVID in the 1st trimester but otherwise had been unremarkable up until November 2020 at which time her blood pressures were found to be mildly elevated. Her granulating blender at that point [facility] labs, all of which were normal with the exception of a mildly elevated LA ALT and start her on labetalol 200 mg p.o. q.d.. Her blood pressures continued to be in the non severe range up until and through her most recent OB visit on 12/18/2020 were her blood pressure was 154/90 and a trace of protein was noted at that time. The patient has started monitoring her blood pressure carefully at home and earlier today her blood pressures were noted there to be in the 170/110 range. She denies any headaches, blurred vision, scotomata, other neurologic changes, or right upper quadrant tenderness. She states she has minimal edema but has noted her urinary output has decreased and her urine is concentrated. She was advised to come to the [facility] for evaluation and your on the Center her systolics is been as high as 181 mg Hg and her diastolics have been as high as 94 despite an additional oral dose of labetalol 200 mg. Her blood pressures have continued to be frequently in the severe range despite bed rest, the additional dose of labetalol orally, and the decision has been made to bring the patient in for continued observation and IV antihypertensives as indicated. Laboratory evaluation shows that her platelet counts have dropped from 251 in early November to 160 at present. In addition her BUN has gone from 5-17 with a BUN creatinine reassure show rising from 9.8 to 25.8. Her ALT which was mildly elevated in early November has normalized and her AST is also at the high end of normal as well. Uric acid has risen from 3.2 in early November to 6.4 today. Urinalysis today is negative for proteinuria. Obstetrical ultrasound performed today shows the infant to be at the 37th percentile insofar of his estimated weight which is 1757 g. KASSI is 9.9 cm, the cervical canal is 5.8 cm long, the placenta is anterior without previa, her NST is reactive, the BPP is 8/8, and umbilical Doppler studies show systolic/diastolic ratios of 3.0, 2.7, and 3.1. [facility] MFM consultation has been requested by the the [employer] line and we are awaiting a response at this time. [facility] Medical History Bacterial vaginosis (~2017) Cough Dyspareunia Exposure to COVID-19 virus Hemorrhoids (~09/2016) Missed ab (~2018) Ovarian cyst (~11/2018) Pelvic pressure in female UTI (urinary tract infection) Surgical History Status post hemorrhoidectomy (07/2016) [place] teeth extracted Family History Brother No problems noted. Father Diabetes mellitus Type 2 diabetes mellitus Asthma Mother Anemia Sister Bipolar 1 disorder Sister Ovarian cyst Grandmother No problems noted. Grandfather No problems noted. 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) special kristofer needs: No Smoking Status: Former smoker (Quit 5 months ago : occasional at the time) Tobacco: How many years used: 3 second hand exposure: No alcohol intake: former (pre-pregnacy : occasional ) substance use type: does not use Review of Systems Review of Systems ROS: Yes All systems reviewed with the patient and are negative except as otherwise documented Exam Const General: cooperative and No acute distress Nutritional Appearance: overweight Orientation: alert and oriented x3 HENMT Head: normocephalic and atraumatic Ears: hearing grossly normal bilaterally Nose: external nose normal Face and sinus: face symmetric Eyes General: appearance normal, both eyes and all related structures Conjunctivae: conjunctivae normal Sclera: sclerae normal EOM: EOM intact bilaterally Neck Neck: trachea midline and supple Thyroid: thyroid normal Resp Effort & Inspection: normal respiratory effort and able to speak in complete sentences Auscultation: clear to auscultation bilaterally Cardio Rate: regular rate Rhythm: regular rhythm Heart Sounds: S1 normal, S2 normal and no murmurs GI Inspection: other (Gravid with FH 31 cm, NT, no contractions) Palpation: soft, no hepatosplenomegaly and No tender General: other (Deferred) Skin General: no rashes or lesions noted Neuro General: patient alert, patient awake and patient oriented x3 Cranial Nerves: CN's II-XI intact bilaterally DTR's: Rt Patellar: 1+ and Lt Patellar: 1+ Extrem General: edema (1-2+ pretibial and pedal edema) Psych Appearance: grossly normal Mental Status: mental status grossly normal Speech and Movement: speech and movement normal Mood: congruent mood Affect: normal affect Attitude: cooperative Thought Process: normal Thought Content: normal Judgment: judgment good Objective Labs Result Diagrams: 12/24/20 13:00 12/24/20 13:00 Labs: Laboratory Results - last 24 hr 12/24/20 12/24/20 13:00 13:00 WBC 11.4 H RBC 3.85 L Hgb 12.3 Hct 35.6 L MCV 92.6 MCH 31.9 MCHC 34.5 RDW 13.2 Plt Count 160 Neut % (Auto) 67.3 Lymph % (Auto) 22.6 L [place] % (Auto) 8.0 Eos % (Auto) 1.5 L Baso % (Auto) 0.6 Neut # (Auto) 7700 H Lymph # (Auto) 2600 [place] # (Auto) 900 Eos # (Auto) 200 Baso # (Auto) 100 BUN 17 Creatinine 0.66 Estimated GFR > 60.0 BUN/Creatinine Ratio 25.8 H Uric Acid 6.4 H AST 34 Evaluation Evaluation Baseline heart rate: 140 Variability: Average (6-10) monitor accelerations: Present Monitor Decelerations: Absent Category of Tracing: Reactive Status: Category l Laboratory results: Laboratory Tests 12/24/20 12/24/20 13:00 13:00 WBC 11.4 H RBC 3.85 L Hgb 12.3 Hct 35.6 L MCV 92.6 MCH 31.9 MCHC 34.5 RDW 13.2 Plt Count 160 Neut % (Auto) 67.3 Lymph % (Auto) 22.6 L [place] % (Auto) 8.0 Eos % (Auto) 1.5 L Baso % (Auto) 0.6 Neut # (Auto) 7700 H Lymph # (Auto) 2600 [place] # (Auto) 900 Eos # (Auto) 200 Baso # (Auto) 100 BUN 17 Creatinine 0.66 Estimated GFR > 60.0 BUN/Creatinine Ratio 25.8 H Uric Acid 6.4 H AST 34 Diagnosis, Plan/Disposition Final Diagnosis (1) : Status: Acute (2) Pre-eclampsia, severe, third trimester: Status: Acute Plan/Disposition Plan: Case reviewed with Dr. Red at [facility] via [employer] who concurs with the impression that the patient's findings represent the development of preeclampsia with severe features at 31 weeks 4 days gestational age. Accordingly, due to a lack of intensive care at this facility in the face of almost certain need to deliver this infant prematurely, the patient will be transferred by ambulance to [facility] L&D for further evaluation and management. At the recommendation of Dr. Red, the patient has had the following performed prior to transfer: - 6 g magnesium sulfate bolus followed by 2 g magnesium sulfate infusion - Gonzalez catheter placement for monitoring I&O - COVID PCR (stat) - GBS carrier testing - GC/CT - Protein to creatinine ratio (stat) - Betamethasone 12 mg IM x 1 - Gonzalez catheter for I&O - Face sheet faxed to - Copies of all available records to accompany patient OB Disposition: tertiary care transfer
[2020-12-24 14:21] LABS: Alanine Aminotransferase 34 IU/L (<35)
[2020-12-24] MEDS: LACTATED RINGERS 1,000 ML 1000 ML IV (16:39)
[2020-12-24] MEDS: MAGNESIUM SULFATE IV (16:41)
[2020-12-24] MEDS: PIGGYBACK IV (16:41)
[2020-12-24] MEDS: LABETALOL 20 MG/4 ML SYRINGE IV (16:43)
[2020-12-24] MEDS: PENICILLIN G POTASSIUM 5,000,000 UNIT in DEXTROSE 5% IN WATER 250 ML IV (17:14)
[2020-12-24 17:30] LABS: Creatinine Urine Random 166.1 mg/dL
[2020-12-24 18:00] LABS: Protein (Total) Urine Random 867 mg/dL (0-12); Protein Creatinine Ratio Urine 5.21 GRAM/24H
[2020-12-24 18:05] LABS: COVID19 - ADMIT (NP swab/PCR) Negative (Negative)
[2020-12-24 18:15] VITALS: BP 173/89; PULSE 80; RESP 18; TEMP 36.6
[2020-12-24 20:04] LABS: Strep Grp B PCR NEG for Grp B Strep
== END 2020-12-24 18:20 | disposition home or self-care (01) ==
PROVIDERS: Obstetrics & Gynecology; Admitting Provider Specialist; PCP Nurse Practitioner Family; Referring Provider Specialist; Visit Provider Specialist
DX: O14.13 Severe pre-eclampsia, third trimester (principal); Z3A.31 31 weeks gestation of pregnancy
CPT/HCPCS: 59025; 59050; 76815; 76819; 76830; 82570; 84156; 84450; 84460; 84550; 85025; 87081; 87635; 87653; 96360; 96372; C9803; G0378; G0379; J2540; J3475

== ENCOUNTER → 2021-06-02 13:32 | Outpatient (CLI) | payer BC, SELFPAY ==
[2021-06-02 15:49] LABS: COVID19 -Nasal RAPID POSITIVE (Negative)
== END ==
PROVIDERS: PCP Nurse Practitioner Family; Referring Provider Nurse Practitioner Family; Visit Provider Nurse Practitioner Family
DX: U07.1 COVID-19 (principal); Z20.822 Contact with and (suspected) exposure to COVID-19; R50.9 Fever, unspecified
CPT/HCPCS: 87635

== ENCOUNTER → 2021-10-04 10:59 | Outpatient (CLI) | payer BC, SELFPAY ==
[2021-10-04 13:00] LABS: Add Manual Diff / Slide Review NO; Basophils Absolute Auto 100 /uL (0-100); Basophils Percent Auto 0.9 % (0-2); Eosinophils Absolute Auto 100 /uL (0-450); Eosinophils Percent Auto 1.9 % (2-4); Hematocrit 39.8 % (36-46); Hemoglobin 13.7 g/dL (12.0-16.0); Lymphocytes Absolute Auto 2300 /uL (1100-4500); Lymphocytes Percent Auto 35.2 % (25-40); Mean Corpuscular HGB Conc 34.4 % (30-36); Mean Corpuscular Volume 87.2 fL (80-100); Monocytes Absolute Auto 400 /uL (0-900); Monocytes Percent Auto 5.9 % (3-14); Neutrophils Absolute Auto 3600 /uL (1500-7000); Neutrophils Percent Auto 56.1 % (50-75); Platelet Count 268 X10^3/uL (150-400); Red Blood Cell Count 4.57 X10^6/uL (4.0-5.2); Red Cell Distribution Width 14.3 % (11.6-14.8); White Blood Cell Count 6.4 X10^3/uL (4.5-11.0)
[2021-10-04 13:46] LABS: Alanine Aminotransferase 14 IU/L (<35); Albumin 4.4 g/dL (3.5-5.0); Albumin Globulin Ratio 1.5 (1.0-2.8); Alkaline Phosphatase 48 U/L (38-126); Aspartate Aminotransferase 20 IU/L (14-36); BUN Creatinine Ratio 17.4 (6-22); Bilirubin Total 0.3 mg/dL (0.2-1.3); Blood Urea Nitrogen 12 mg/dL (7-17); Calcium 9.2 mg/dL (8.4-10.2); Carbon Dioxide 22 mmol/L (22-32); Chloride 105 mmol/L (98-107); Estimated Glomerular Filt Rate > 60 mL/min (>60); Globulin 2.9 g/dL (1.7-4.1); Glucose 102 mg/dL (70-100); HEMOLYSIS 27 (0-50); Sodium 138 mmol/L (137-145); Total Protein 7.3 g/dL (6.3-8.2)
[2021-10-04 14:16] LABS: TSH w/ Reflex to FT4 1.32 uIU/mL (0.47-4.68)
== END ==
PROVIDERS: PCP Nurse Practitioner Family; Referring Provider Physician Assistant; Visit Provider Physician Assistant
DX: Z13.29 Encounter for screening for other suspected endocrine disorder (principal); F41.9 Anxiety disorder, unspecified
CPT/HCPCS: 36415; 80053; 84443; 85025

== ENCOUNTER → 2022-03-03 16:07 | Outpatient (CLI) | payer BC, SELFPAY | PROVIDERS: PCP Nurse Practitioner Family; Visit Provider Nurse Practitioner Family | DX: N39.0 Urinary tract infection, site not specified (principal); N89.8 Other specified noninflammatory disorders of vagina | CPT/HCPCS: 87077; 87086; 87186; 87210 ==

== ENCOUNTER → 2022-07-07 17:48 | Outpatient (CLI) | payer BC, SELFPAY | PROVIDERS: PCP Family Medicine; Visit Provider Student in an Organized Health Care Education/Training Program | DX: N89.8 Other specified noninflammatory disorders of vagina (principal) | CPT/HCPCS: 87086; 87210 ==

== ENCOUNTER → 2023-01-25 09:27 | Outpatient (CLI) | payer BC, SELFPAY ==
[2023-01-25 11:04] LABS: Add Manual Diff / Slide Review NO; Basophils Absolute Auto 100 /uL (0-100); Basophils Percent Auto 1.1 % (0-2); Eosinophils Absolute Auto 200 /uL (0-450); Eosinophils Percent Auto 2.8 % (2-4); Hematocrit 43.7 % (36-46); Hemoglobin 14.8 g/dL (12.0-16.0); Lymphocytes Absolute Auto 2000 /uL (1100-4500); Lymphocytes Percent Auto 32.2 % (25-40); Mean Corpuscular HGB Conc 33.8 % (30-36); Mean Corpuscular Hemoglobin 30.7 PG (26-34); Mean Corpuscular Volume 90.8 fL (80-100); Monocytes Absolute Auto 400 /uL (0-900); Monocytes Percent Auto 5.7 % (3-14); Neutrophils Absolute Auto 3700 /uL (1500-7000); Neutrophils Percent Auto 58.2 % (50-75); Platelet Count 272 X10^3/uL (150-400); Red Blood Cell Count 4.82 X10^6/uL (4.0-5.2); White Blood Cell Count 6.4 X10^3/uL (4.5-11.0)
[2023-01-25 11:16] LABS: Alanine Aminotransferase 19 IU/L (<35); Albumin 4.8 g/dL (3.5-5.0); Albumin Globulin Ratio 1.5 (1.0-2.8); Alkaline Phosphatase 69 U/L (38-126); Aspartate Aminotransferase 22 IU/L (14-36); BUN Creatinine Ratio 14.9 (6-22); Bilirubin Total 0.7 mg/dL (0.2-1.3); Blood Urea Nitrogen 10 mg/dL (7-17); Calcium 9.2 mg/dL (8.4-10.2); Carbon Dioxide 24 mmol/L (22-32); Chloride 103 mmol/L (98-107); Estimated Glomerular Filt Rate > 60 mL/min (>60); Globulin 3.3 g/dL (1.7-4.1); Glucose 98 mg/dL (70-100); HEMOLYSIS < 15 (0-50); Potassium 3.8 mmol/L (3.4-5.1); Sodium 137 mmol/L (137-145); Total Protein 8.1 g/dL (6.3-8.2)
[2023-01-26 03:10] LABS: Cholesterol HDL Ratio 4.2 ratio (0.0-4.4); Cholesterol,Total 194 mg/dL (100-199); HDL Cholesterol 46 mg/dL (>39); LDL Cholesterol Cal 131 mg/dL (0-99); Triglycerides 93 mg/dL (0-149); VLDL Cholesterol Cal 17 mg/dL (5-40)
[2023-01-26 12:35] LABS: Hep C Virus Ab w/Reflex Quant NEGATIVE s/c (NEGATIVE)
[2023-01-26 20:36] LABS: Deamidated Gliadin Ab IgA 4 units (0-19); Deamidated Gliadin Ab IgG 5 units (0-19); Immunoglobulin A,Qn 247 mg/dL (87-352); t-Transglutaminase IgA <2 U/mL (0-3)
== END ==
PROVIDERS: PCP Family Medicine; Referring Provider Nurse Practitioner Family; Visit Provider Nurse Practitioner Family
DX: F41.9 Anxiety disorder, unspecified (principal); Z13.220 Encounter for screening for lipoid disorders; Z13.1 Encounter for screening for diabetes mellitus; R14.0 Abdominal distension (gaseous); Z11.59 Encounter for screening for other viral diseases
CPT/HCPCS: 36415; 80053; 80061; 82784; 83516; 84439; 84443; 85025; 86803

== ENCOUNTER → 2023-07-21 14:54 | Outpatient (CLI) | payer BC, SELFPAY ==
[2023-07-21 16:37] LABS: Alanine Aminotransferase 23 IU/L (<35); Albumin 4.5 g/dL (3.5-5.0); Albumin Globulin Ratio 1.3 (1.0-2.8); Alkaline Phosphatase 74 U/L (38-126); Aspartate Aminotransferase 24 IU/L (14-36); BUN Creatinine Ratio 17.2 (6-22); Bilirubin Total 0.4 mg/dL (0.2-1.3); Blood Urea Nitrogen 11 mg/dL (7-17); Calcium 9.5 mg/dL (8.4-10.2); Carbon Dioxide 23 mmol/L (22-32); Chloride 106 mmol/L (98-107); Estimated Glomerular Filt Rate > 60 mL/min (>60); Globulin 3.4 g/dL (1.7-4.1); Glucose 98 mg/dL (70-100); HEMOLYSIS < 15 (0-50); Potassium 3.9 mmol/L (3.4-5.1); Sodium 137 mmol/L (137-145); Total Protein 7.9 g/dL (6.3-8.2)
[2023-07-23 06:23] LABS: Hepatitis A Ab Total Negative (Negative)
[2023-07-24 15:55] LABS: HIV 1 & 2 Ab/Ag 4th Gen Combo NEGATIVE (NEGATIVE)
== END ==
LOC: LAB 14:56
PROVIDERS: PCP Family Medicine; Referring Provider Nurse Practitioner Family; Visit Provider Nurse Practitioner Family
DX: R19.7 Diarrhea, unspecified (principal)
CPT/HCPCS: 36415; 80053; 86708; 87389

== ENCOUNTER → 2023-07-24 15:05 | Outpatient (CLI) | payer BC, SELFPAY ==
[2023-07-26 12:09] LABS: C difficie Toxins A and B, EIA Negative (Negative)
== END ==
LOC: LAB 15:09
PROVIDERS: PCP Family Medicine; Referring Provider Nurse Practitioner Family; Visit Provider Nurse Practitioner Family
DX: R19.7 Diarrhea, unspecified (principal)
CPT/HCPCS: 87045; 87177; 87324

== ENCOUNTER 2023-09-15 10:15 | Emergency (ER) | payer BC, SELFPAY ==
--- NOTE | 2023-09-15 10:30 | ED_ITS ---
HPI - General Adult General Chief complaint: Urogenital-Female Stated complaint: Lower left stomach pain Time Seen by Provider: 09/15/23 10:18 Source: patient Mode of arrival: Ambulatory Limitations: no limitations History of Present Illness HPI narrative: Patient is a 28-year-old female. Is a . Had a positive test this morning. Is here for evaluation of lower abdominal/left adnexal pain that started approximately 5 days ago. She also started to have vaginal bleeding. She stated that she had a menstrual cycle about a week ago that had a resolution of the bleeding and now this is new bleeding. Does cause some discomfort with intercourse. She gets some relief with the discomfort with urinating. No changes in bowel habits. No fevers. No vomiting. Does not know how far along she is with this . Related Data Previous Rx's Medication Instructions Recorded norethindrone 1 mg-ethinyl 1 tab PO DAILY control #84 03/10/22 estradiol 20 mcg (21)-iron 75 mg tabs (7) tablet amoxicillin 875 mg tablet 875 mg PO BID #20 tabs 11/08/22 montelukast 10 mg tablet 10 mg PO BEDTIME #30 tabs 11/08/22 fluconazole 150 mg tablet 150 mg PO Q3D 2 doses #2 tabs 11/23/22 Allergies Allergy/AdvReac Type Severity Reaction Status Date / Time No Known Drug Allergies Allergy Verified 11/08/22 15:10 Review of Systems Review of Systems Narrative: See HPI Patient History Medical History Physical exam Elevated blood pressure reading Pre-eclampsia, severe, third trimester Ovarian cyst (~11/2018) Bacterial vaginosis (~2017) Exposure to COVID-19 virus Cough Dyspareunia Pelvic pressure in female UTI (urinary tract infection) Missed ab (~2018) Hemorrhoids (~09/2016) Surgical History Status post hemorrhoidectomy (07/2016) [place] teeth extracted Family History Brother No problems noted. Father Diabetes mellitus Type 2 diabetes mellitus Asthma Mother Anemia Sister Bipolar 1 disorder Sister Ovarian cyst Grandmother No problems noted. Grandfather No problems noted. 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) special kristofer needs: No Smoking Status: Former smoker Tobacco: How many years used: 3 second hand exposure: No alcohol intake: former (pre-pregnacy : occasional ) substance use type: does not use Smoking Status: Former smoker (Quit 5 months ago : occasional at the time) alcohol intake frequency: other Substance Use Type: does not use Exam Initial Vital Signs Initial Vital Signs: Vital Signs Temperature 98.3 F 09/15/23 10:43 Pulse Rate 78 09/15/23 10:43 Respiratory Rate 20 09/15/23 10:43 Blood Pressure 161/104 H 09/15/23 10:43 Pulse Oximetry 99 09/15/23 10:43 Oxygen Delivery Method Room Air 09/15/23 10:43 Const General: cooperative, comfortable and No ill appearing HENMT Head: normal to inspection and normocephalic GI Inspection: normal to inspection and non-distended Palpation: soft and tender (Lower abdomen left adnexa) Back/Spine/Pelvis Back: No CVA tenderness Skin General: no rashes or lesions noted Extrem General: normal to inspection and capillary refill normal Course Orders Ordered: ED Orders 09/15/23 10:31 US pelvic complete Stat 09/15/23 10:39 ABO RH Type Stat Complete Blood Count AUTO DIFF Stat Comprehensive Metabolic Panel Stat HCG Quantitative /Beta subunit Stat Lipase Stat 09/15/23 11:07 Urine Microscopic Stat Vital Signs Vital signs: Vital Signs - 8 hr 09/15/23 10:43 09/15/23 11:35 Temperature 98.3 F Pulse Rate 78 71 Respiratory Rate 20 20 Blood Pressure 161/104 H 148/85 H Pulse Oximetry 99 100 Oxygen Delivery Method Room Air Room Air Medical Decision Making Lab Data Lab results reviewed: Yes I reviewed the patient's lab results. 09/15/23 10:39 09/15/23 10:39 Labs: Lab Results 09/15/23 09/15/23 Range/Units 10:39 11:07 WBC 10.7 (4.5-11.0) X10^3/uL RBC 4.43 (4.0-5.2) X10^6/uL Hgb 14.0 (12.0-16.0) g/dL Hct 41.3 (36-46) % MCV 93.3 (80-100) fL MCH 31.7 (26-34) PG MCHC 34.0 (30-36) % RDW 13.7 (11.6-14.8) % Plt Count 343 (150-400) X10^3/uL Neut % (Auto) 69.2 (50-75) % Lymph % (Auto) 22.6 L (25-40) % [place] % (Auto) 5.8 (3-14) % Eos % (Auto) 1.4 L (2-4) % Baso % (Auto) 1.0 (0-2) % Neut # (Auto) 7400 H (1346-3768) /uL Lymph # (Auto) 2400 (8940-1297) /uL [place] # (Auto) 600 (0-900) /uL Eos # (Auto) 200 (0-450) /uL Baso # (Auto) 100 (0-100) /uL Sodium 138 (137-145) mmol/L Potassium 3.5 (3.4-5.1) mmol/L Chloride 105 (98-107) mmol/L Carbon Dioxide 23 (22-32) mmol/L BUN 12 (7-17) mg/dL Creatinine 0.61 (0.52-1.04) mg/dL Estimated GFR > 60 (>60) mL/min BUN/Creatinine Ratio 19.7 (6-22) Glucose 90 (70-100) mg/dL Calcium 9.3 (8.4-10.2) mg/dL Total Bilirubin 0.7 (0.2-1.3) mg/dL AST 20 (14-36) IU/L ALT 14 (<35) IU/L Alkaline Phosphatase 67 (38-126) U/L Total Protein 8.0 (6.3-8.2) g/dL Albumin 4.8 (3.5-5.0) g/dL Globulin 3.2 (1.7-4.1) g/dL Albumin/Globulin Ratio 1.5 (1.0-2.8) Lipase 189 (23-300) U/L HCG, Quant 10.9 mIU/mL Urine RBC None seen (0-5/HPF) Urine WBC 0-1/hpf (0-5/HPF) Ur Squamous Epith Cells 1-5 /hpf (0-5/HPF) Urine Bacteria Moderate (10-30) H (None) Ur Culture Indicated? Cult not indicated Vol Urine Centrifuged 10ml (spun) Blood Type O Positive Point of Care Testing Test Results Negative Urine Dip Bedside Urine Glucose Negative Bedside Urine Bilirubin - Negative Bedside Urine Ketone - Negative Urine Specific [place] 1.00 Bedside Urine Occult Blood + Bedside Urine pH 6.5 Bedside Urine Protein - Negative Bedside Urine Urobilinogen - Negative Bedside Urine Nitrite - Negative Bedside Urine Leukocytes - Negative Esterase Point of care testing: Point of Care Testing Test Results Negative Urine Dip Bedside Urine Glucose Negative Bedside Urine Bilirubin - Negative Bedside Urine Ketone - Negative Urine Specific [place] 1.00 Bedside Urine Occult Blood + Bedside Urine pH 6.5 Bedside Urine Protein - Negative Bedside Urine Urobilinogen - Negative Bedside Urine Nitrite - Negative Bedside Urine Leukocytes - Negative Esterase Imaging Data US - WORM PACKER: Radiologist's Impression: PROCEDURE: US PELVIC COMPLETE INDICATIONS: Vaginal bleeding with positive test TECHNIQUE: Real-time scanning was performed of the pelvic organs, with image documentation. Additional endovaginal scanning was necessary due to incomplete visualization of the adnexal and endometrial structures by transabdominal scanning. COMPARISON: None. FINDINGS: Uterus: Uterus is anteverted and normal in size at 8 x 5.3 x 4.3 cm. The myometrium is homogeneous. The endometrium measures 4 mm proximally and 8 mm in the mid segment with an isoechoic/echogenic area measuring 1.4 x 0.7 cm. No intrauterine gestational sac. Nabothian cysts. Trace fluid in the cervix. Ovaries: The right ovary measures 3.3 x 2 x 2 cm, with a calculated ovarian volume of 6.9 cc. The left ovary measures 2.6 x 1.6 x 1.4 cm, with a calculated ovarian volume of 3 cc. Right-sided anechoic ovarian dominant follicle/cyst measuring 1.9 x 1.7 x 1.2 cm with no increased vascularity. Less than 12 follicles can be seen in each ovary. Color Doppler flow within both ovaries. No adnexal masses are seen. Other: No pathologic free abdominal or pelvic fluid. IMPRESSION: 1. No intrauterine gestational sac. Recommend correlation with beta HCG and close interval ultrasound follow-up. 2. Isoechoic/echogenic area within the endometrium measuring 1.4 x 0.7 cm may represent a clot. Trace fluid in the cervix. Attention on follow-up imaging. 3. Normal sonographic appearance of the bilateral ovaries with a right-sided dominant follicle measuring 1.9 x 1.7 x 1.2 cm. MDM Narrative Medical decision making narrative: Ultrasound shows no intrauterine however her beta-hCG level was 10. She was having vaginal bleeding. The rest of her electrolytes and blood counts are unremarkable. Vital signs unremarkable. She is Rh positive. No indication for RhoGAM. She does need a repeat beta hCG level in 48 hours. Advised that she contact your primary doctor to have this performed or to return to the emergency department. She was given return precautions. She expressed understanding and agreement. Discharge Plan Departure Patient Disposition: Home Clinical Impression: Threatened miscarriage Instructions: DI for Vaginal Bleeding During Activity Restrictions/Additional Instructions: You do need a repeat hormone level done in 48 hours from today. I recommend that you contact your primary care doctor for a follow-up on Monday. If you are unable to get into see your primary doctor recommend that you return to the emergency department. Prescriptions: No Action montelukast 10 mg tablet 10 mg PO BEDTIME Qty: 30 3RF amoxicillin 875 mg tablet 875 mg PO BID Qty: 20 0RF norethindrone-e.estradiol-iron 1 mg-20 mcg (21)/75 mg (7) tablet 1 tab PO DAILY Qty: 84 4RF fluconazole 150 mg tablet 150 mg PO Q3D Qty: 2 0RF Rx Instructions: Take one tab, May repeat in 3 days if symptoms not resolved. Referrals: Shasha Alegria MD [Primary Care Provider] - Stand Alone Forms: Patient Portal/API
--- NOTE | 2023-09-15 10:31 | DI.US.S_ITS ---
PROCEDURE: US PELVIC COMPLETE INDICATIONS: Vaginal bleeding with positive test TECHNIQUE: Real-time scanning was performed of the pelvic organs, with image documentation. Additional endovaginal scanning was necessary due to incomplete visualization of the adnexal and endometrial structures by transabdominal scanning. COMPARISON: None. FINDINGS: Uterus: Uterus is anteverted and normal in size at 8 x 5.3 x 4.3 cm. The myometrium is homogeneous. The endometrium measures 4 mm proximally and 8 mm in the mid segment with an isoechoic/echogenic area measuring 1.4 x 0.7 cm. No intrauterine gestational sac. Nabothian cysts. Trace fluid in the cervix. Ovaries: The right ovary measures 3.3 x 2 x 2 cm, with a calculated ovarian volume of 6.9 cc. The left ovary measures 2.6 x 1.6 x 1.4 cm, with a calculated ovarian volume of 3 cc. Right-sided anechoic ovarian dominant follicle/cyst measuring 1.9 x 1.7 x 1.2 cm with no increased vascularity. Less than 12 follicles can be seen in each ovary. Color Doppler flow within both ovaries. No adnexal masses are seen. Other: No pathologic free abdominal or pelvic fluid. IMPRESSION: 1. No intrauterine gestational sac. Recommend correlation with beta HCG and close interval ultrasound follow-up. 2. Isoechoic/echogenic area within the endometrium measuring 1.4 x 0.7 cm may represent a clot. Trace fluid in the cervix. Attention on follow-up imaging. 3. Normal sonographic appearance of the bilateral ovaries with a right-sided dominant follicle measuring 1.9 x 1.7 x 1.2 cm. We strive to produce accurate, complete, and clear reports of imaging services. To assist us in improving patient care, this report was composed using standard report templates and voice recognition software. Therefore, it may contain abnormal punctuation, insertions and/or omissions. Occasional wrong-word or sound-alike substitutions may occur. Though we review the report and make efforts to correct it, we do recommend that the report be read carefully in proper context to recognize any text inaccuracies. Dictated by: Radha He M.D. on 09/15/2023 at 11:43 Approved by: Radha He M.D. on 09/15/2023 at 11:48
[2023-09-15 10:43] VITALS: BP 161/104; PULSE 78; RESP 20; TEMP 36.8; O2SAT 99; BMI 27.9
[2023-09-15 10:46] LABS: Add Manual Diff / Slide Review NO; Basophils Absolute Auto 100 /uL (0-100); Eosinophils Absolute Auto 200 /uL (0-450); Eosinophils Percent Auto 1.4 % (2-4); Hematocrit 41.3 % (36-46); Lymphocytes Absolute Auto 2400 /uL (1100-4500); Lymphocytes Percent Auto 22.6 % (25-40); Mean Corpuscular Hemoglobin 31.7 PG (26-34); Mean Corpuscular Volume 93.3 fL (80-100); Monocytes Absolute Auto 600 /uL (0-900); Monocytes Percent Auto 5.8 % (3-14); Neutrophils Absolute Auto 7400 /uL (1500-7000); Neutrophils Percent Auto 69.2 % (50-75); Platelet Count 343 X10^3/uL (150-400); Red Blood Cell Count 4.43 X10^6/uL (4.0-5.2); Red Cell Distribution Width 13.7 % (11.6-14.8); White Blood Cell Count 10.7 X10^3/uL (4.5-11.0)
--- NOTE | 2023-09-15 10:57 | PC.NURSE ---
Pt came to ED today because she has been having LLQ pain after having her period and a positive home test. Pt states that she has been spotting for about 5 days as well. Pt also notes that she has been having milky white discharge from nipples and has noted a red sore on her right breast and a lump in her left armpit. Pt has not had a mammogram. States pain is 5/10. States that she felt relief when she urinated. Denies any burning, pain or frequency with urination. denies any bowel issues. Pt
[2023-09-15 10:58] LABS: Alanine Aminotransferase 14 IU/L (<35); Albumin 4.8 g/dL (3.5-5.0); Albumin Globulin Ratio 1.5 (1.0-2.8); Alkaline Phosphatase 67 U/L (38-126); Aspartate Aminotransferase 20 IU/L (14-36); BUN Creatinine Ratio 19.7 (6-22); Bilirubin Total 0.7 mg/dL (0.2-1.3); Blood Urea Nitrogen 12 mg/dL (7-17); Calcium 9.3 mg/dL (8.4-10.2); Carbon Dioxide 23 mmol/L (22-32); Chloride 105 mmol/L (98-107); Estimated Glomerular Filt Rate > 60 mL/min (>60); Globulin 3.2 g/dL (1.7-4.1); Glucose 90 mg/dL (70-100); HEMOLYSIS < 15 (0-50); Lipase 189 U/L (23-300); Potassium 3.5 mmol/L (3.4-5.1); Sodium 138 mmol/L (137-145)
[2023-09-15 11:15] LABS: HCG Quantitative /Beta subunit 10.9 mIU/mL
--- NOTE | 2023-09-15 11:15 | PC.NURSE ---
Pt reported having + urine home test. Urine test in ED negative.
[2023-09-15 11:25] LABS: Bacteria Urine Moderate (10-30); Culture Indicated Urine Cult Not Indicated; RBC Urine None Seen (0-5/HPF); Squamous Epithelial Cell Urine 1-5 /HPF (0-5/HPF); Urine Volume 10mL (spun); WBC Urine 0-1/HPF (0-5/HPF)
[2023-09-15 11:35] VITALS: BP 148/85; PULSE 71; RESP 20; O2SAT 100
[2023-09-15 12:17] VITALS: BP 151/83; PULSE 67; O2SAT 100
== END 2023-09-15 12:17 | disposition home or self-care (01) ==
PROVIDERS: Emergency Provider Emergency Medicine; PCP Family Medicine
DX: O20.0 Threatened abortion (principal); Z3A.00 Weeks of gestation of pregnancy not specified
CPT/HCPCS: 36415; 76830; 76856; 80053; 81003; 81015; 81025; 83690; 84702; 85025; 86900; 86901; 93975; 99283; 99284

== ENCOUNTER → 2023-09-18 10:28 | Outpatient (CLI) | payer BC, SELFPAY ==
[2023-09-18 11:53] LABS: HCG Quantitative /Beta subunit 3.9 mIU/mL
== END ==
PROVIDERS: PCP Family Medicine; Referring Provider Family Medicine; Visit Provider Family Medicine
DX: O20.0 Threatened abortion (principal)
CPT/HCPCS: 36415; 84702

== ENCOUNTER → 2024-04-03 10:29 | Outpatient (CLI) | payer BC, SELFPAY | PROVIDERS: PCP Family Medicine; Visit Provider Student in an Organized Health Care Education/Training Program | DX: R30.0 Dysuria (principal); R35.0 Frequency of micturition; N30.01 Acute cystitis with hematuria | CPT/HCPCS: 87077; 87086; 87186 ==

== ENCOUNTER → 2024-09-04 08:56 | Outpatient (CLI) | payer BC, SELFPAY ==
[2024-09-04 09:54] LABS: COVID-19 CEPHEID 4-PLEX PCR Negative (Negative); Influenza A - CEPHEID Flu A NEGATIVE (NEGATIVE); Influenza B - CEPHEID Flu B NEGATIVE (NEGATIVE); Respiratory Syncytial Virus Negative (Negative)
== END ==
PROVIDERS: PCP Family Medicine; Visit Provider Student in an Organized Health Care Education/Training Program
DX: R05.1 Acute cough (principal)
CPT/HCPCS: 0241U

== ENCOUNTER 2024-09-04 09:23 | Emergency (ER) | payer BC, SELFPAY ==
[2024-09-04] VITALS (7 sets, daily range): BP systolic 135–147; BP diastolic 63–92; PULSE 72–86; RESP 14; TEMP 36.7; O2SAT 98–100; BMI 28.3
--- NOTE | 2024-09-04 09:40 | ED.ABDPAIN ---
HPI - Abdominal Pain General Chief Complaint: Abdominal Pain Stated Complaint: Lower right side back pain, moving to front Time Seen by Provider: 09/04/24 09:40 Source: patient Mode of arrival: Wheelchair History of Present Illness HPI narrative: 29-year-old female history of anxiety, depression, chronic sacroiliac joint pain, comes into the ED from home for evaluation of right-sided flank/abdominal pain. States that this started yesterday at around 11:00 p.m. she states that it is spontaneous in nature initially, but now states that whenever she coughs or flexes her truncal region she feels reproduction of the pain, states it was a pressure, she states that initially thought she just ?pulled a muscle but due to persistent symptoms decided come into the ED for further evaluation treatment. She denies any other symptoms his headache visual disturbances chest pain shortness of breath fever chills nausea vomiting or any other GI/ symptoms at this time. Related Data Home Medications Medication Instructions Recorded Confirmed propranolol 20 mg tablet mg PO 09/20/23 05/17/24 quetiapine 25 mg tablet mg PO BEDTIME 09/20/23 05/17/24 fluoxetine 20 mg capsule mg PO DAILY 06/07/24 06/07/24 benzonatate 200 mg capsule mg PO 09/04/24 09/04/24 cefuroxime axetil 500 mg tablet 500 mg PO BID 09/04/24 09/04/24 Allergies Allergy/AdvReac Type Severity Reaction Status Date / Time No Known Drug Allergies Allergy Verified 09/04/24 09:36 Review of Systems Review of Systems Narrative: General: Denies fever, chills, weight loss HEENT: Denies headache, eye drainage, eye irritation, head trauma, sore throat, voice change Cardiovascular: Denies any chest pain, palpitations, tachycardia Respiratory: Denies any shortness of breath, cough, wheeze, stridor GI/: Positive right-sided flank and right-sided abdominal pain, denies nausea, vomiting, diarrhea, bright red blood per rectum, melanotic stools, urinary frequency, urinary retention, dysuria, hematuria MSK: Denies any joint pain, muscle pains, swelling Skin: Denies any rashes, lesions, discoloration Neuro: Denies any headache, lightheadedness, dizziness, fainting, weakness Psych: Denies SI/HI Patient History Medical History Physical exam Pre-eclampsia, severe, third trimester Ovarian cyst (~11/2018) Bacterial vaginosis (~2017) UTI (urinary tract infection) Missed ab (~2018) Hemorrhoids (~09/2016) Surgical History [place] teeth extracted Status post hemorrhoidectomy (07/2016) Family History Brother No problems noted. Father Diabetes mellitus Type 2 diabetes mellitus Asthma Mother Anemia Sister Bipolar 1 disorder Sister Ovarian cyst Grandmother No problems noted. Grandfather No problems noted. 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 Boss when she is ready to) special kristofer needs: No Smoking Status: Unknown if ever smoked Tobacco: How many years used: 3 second hand exposure: No alcohol intake: former (pre-pregnacy : occasional ) substance use type: does not use Smoking Status: Unknown if ever smoked alcohol intake frequency: other Exam Narrative Exam Narrative: General: Cooperative, well-developed, not in acute distress HEENT: Normocephalic, atraumatic, PERRLA, normal sclera, eyelids normal Neck: Active full range of motion, atraumatic Chest: Normal to inspection, negative crepitus, no overlying erythema ecchymosis Respiratory: Normal respiratory effort, not in acute respiratory distress, clear to auscultation bilaterally negative cough, wheeze, tachypnea, rhonchi, rales Cardiology: Regular rate rhythm negative gallop, murmur, rubs GI/: Mild tenderness to palpation right-sided, soft, non rigid, normal to inspection, exam deferred MSK: Full active range of motion in all 4 extremities, atraumatic, no tenderness to palpation of any bony prominences Skin: No rashes or lesions noted Neuro: Alert awake oriented x3, moves all 4 extremities spontaneously, cranial nerves intact, able to answer all questions appropriately follows commands appropriately Psych: Cooperative, negative suicidal or homicidal ideations Initial Vital Signs Initial Vital Signs: Vital Signs Temperature 98.1 F 09/04/24 09:30 Pulse Rate 86 09/04/24 09:30 Respiratory Rate 14 09/04/24 09:30 Blood Pressure 147/92 H 09/04/24 09:30 Pulse Oximetry 100 09/04/24 09:30 Oxygen Delivery Method Room Air 09/04/24 09:30 Course Orders Ordered: ED Orders 09/04/24 09:38 Complete Blood Count AUTO DIFF Stat Comprehensive Metabolic Panel Stat Lipase Stat 09/04/24 09:43 Ictotest Urine Stat 09/04/24 09:49 CT abdomen pelvis w con Stat 09/04/24 09:59 MAG [Magnesium] Stat Sodium Chloride (Normal Saline 0.9%) 1,000 mls @ 1,000 mls/hr IV BOLUS ONE Stop: 09/04/24 10:48 Last Admin: 09/04/24 10:10 Dose: 1,000 mls/hr Documented By: CALVIN Ondansetron HCl (Ondansetron 4 Mg/2 Ml Inj) 4 mg IV NOW PRN PRN Reason: Nausea And Vomiting Last Admin: 09/04/24 10:10 Dose: 4 mg Documented By: CALVIN Ondansetron HCl (Ondansetron 4 Mg Odt) 4 mg PO NOW PRN PRN Reason: Nausea And Vomiting Discontinued Medications Ketorolac Tromethamine (Ketorolac 30 Mg/Ml Vial) 30 mg IV NOW ONE Stop: 09/04/24 09:50 Last Admin: 09/04/24 10:10 Dose: 30 mg Documented By: CALVIN Vital Signs Vital signs: Vital Signs - 8 hr 09/04/24 09:30 09/04/24 09:34 09/04/24 09:35 Temperature 98.1 F Pulse Rate 86 83 Respiratory Rate 14 Blood Pressure 147/92 H 147/92 H Pulse Oximetry 100 99 Oxygen Delivery Method Room Air 09/04/24 09:35 Temperature Pulse Rate 81 Respiratory Rate Blood Pressure Pulse Oximetry 100 Oxygen Delivery Method MDM - Abdominal Pain Differential Diagnosis Differential diagnosis: Likely abdominal pain, acute appendicitis, constipation, diverticulitis, pancreatitis and other (Urolithiasis, pyelonephritis, electrolyte abnormality) Lab Data 09/04/24 09:38 09/04/24 09:38 Labs: Lab Results 09/04/24 09/04/24 09/04/24 Range/Units 09:38 09:43 09:59 WBC 9.7 (4.5-11.0) X10^3/uL RBC 4.62 (4.0-5.2) X10^6/uL Hgb 14.1 (12.0-16.0) g/dL Hct 41.7 (36-46) % MCV 90.3 (80-100) fL MCH 30.6 (26-34) PG MCHC 33.9 (30-36) % RDW 13.2 (11.6-14.8) % Plt Count 293 (150-400) X10^3/uL Neut % (Auto) 58.4 (50-75) % Lymph % (Auto) 26.7 (25-40) % Warren % (Auto) 8.1 (3-14) % Eos % (Auto) 6.2 H (2-4) % Baso % (Auto) 0.6 (0-2) % Neut # (Auto) 5600 (9928-3718) /uL Lymph # (Auto) 2600 (9390-7487) /uL Warren # (Auto) 800 (0-900) /uL Eos # (Auto) 600 H (0-450) /uL Baso # (Auto) 100 (0-100) /uL Sodium 137 (137-145) mmol/L Potassium 3.7 (3.4-5.1) mmol/L Chloride 104 (98-107) mmol/L Carbon Dioxide 24 (22-32) mmol/L BUN 9 (7-17) mg/dL Creatinine 0.63 (0.52-1.04) mg/dL Estimated GFR > 60 (>60) mL/min BUN/Creatinine Ratio 14.3 (6-22) Glucose 89 (70-100) mg/dL Calcium 8.9 (8.4-10.2) mg/dL Magnesium 1.9 (1.6-2.3) mg/dL Total Bilirubin 0.6 (0.2-1.3) mg/dL AST 37 H (14-36) IU/L ALT 26 (<35) IU/L Alkaline Phosphatase 67 (38-126) U/L Total Protein 7.5 (6.3-8.2) g/dL Albumin 4.5 (3.5-5.0) g/dL Globulin 3.0 (1.7-4.1) g/dL Albumin/Globulin Ratio 1.5 (1.0-2.8) Lipase 129 (23-300) U/L Ur Bilirubin Confirm Negative (Negative) Point of care testing: Point of Care Testing Test Results Negative Urine Dip Bedside Urine Glucose Negative Bedside Urine Bilirubin + 1 Bedside Urine Ketone - Negative Urine Specific Cora 1.020 Bedside Urine Occult Blood - Negative Bedside Urine pH 6.5 Bedside Urine Protein - Negative Bedside Urine Urobilinogen - Negative Bedside Urine Nitrite - Negative Bedside Urine Leukocytes - Negative Esterase Imaging Data CT scan - abdomen/pelvis: Radiologist's Impression: [place] [address] CT Scan Report Signed Patient: Jayda Galicia MR#: [id number] : 1995 Acct:[id number] Age/Sex: 29 / F Date of Service: 09/04/24 Loc: Accession Number: [id number] Procedure: CT abdomen pelvis w con Ordering Provider: Luis Alfredo Cook D.O. PROCEDURE: CT ABDOMEN PELVIS W CON INDICATIONS: right sided flank and abd pain TECHNIQUE: After the administration of intravenous contrast, axial sections acquired from the lung bases to the pubic symphysis. Coronal and sagittal reformats were performed. For radiation dose reduction, the following was used: automated exposure control, adjustment of mA and/or kV according to patient size. COMPARISON: None. FINDINGS: Image quality: Diagnostic. Lower Chest: No significant findings. ABDOMEN: Liver: No solid mass. Gallbladder: No radiopaque gallstones or wall thickening. Biliary ducts: No biliary dilation. Pancreas: No ductal dilation. Spleen: Size is within normal limits. Adrenal Glands: No adrenal nodules. Kidneys and Ureters: No hydronephrosis. No solid mass. No complex renal cystic lesion which requires follow up. Stomach and Bowel: Normal colonic caliber, without significant wall thickening. Normal appendix. Peritoneum: No abnormal intraperitoneal fluid. No free air. Ventral Wall: No significant ventral hernia. Abdominal Nodes: No retroperitoneal or mesenteric adenopathy by size criteria. Vessels: Aorta and inferior vena cava are normal in size. PELVIS: Pelvic Organs: Unremarkable. Bladder: No bladder wall thickening, accounting for underdistention. Pelvic Nodes: No enlarged lymph nodes. Miscellaneous: No inguinal hernias are seen. Bones: No aggressive osseous abnormality. Unilateral left L5 pars defect. IMPRESSION: Normal appendix. No acute abdominal process. No findings which explain right flank pain. MDM Narrative Medical decision making narrative: 29-year-old female without any significant past medical history presenting for right-sided flank and abdominal pain since yesterday. States that the pain started spontaneously but states it is worse with cough or movement, on exam patient with very mild tenderness to palpation of the right abdomen no CVA tenderness, patient states that she has been fighting a upper respiratory infection and is thinking that she might have just ?strained a muscle but due to persistent symptoms wanted to come into the ED for further evaluation treatment. Patient had lab work imaging and urinalysis performed here in the emergency department. Patient without any leukocytosis, Chem panel unremarkable patient without any signs of urinary infection on urinalysis, CT scan without any acute findings, symptoms more likely secondary to muscle strain/spasms secondary to her coughing. Patient was given strict return precautions she verbalized understanding of this and agrees to being discharged home with outpatient follow up. She was instructed to follow up with the primary care doctor. Discharge Plan Departure Patient Disposition: Home Clinical Impression: Abdominal pain Activity Restrictions/Additional Instructions: Please follow up with the primary care doctor Please read the discharge instructions sheet carefully and bring all papers to all doctor follow-up visits, as it may contain information that your doctor may want to see. Disease processes change and evolve, if your symptoms worsen or if you develop any new symptoms that are concerning to you please return for evaluation. Your evaluation today does not show any evidence of any life-threatening/serious illnesses requiring admission to the hospital or surgery. Please follow-up with your doctor for re-evaluation in approximately 1 day. Seek immediate medical attention for any worrisome symptoms. *If you do not have a primary care provider please contact the [facility] Resource line at [phone]. They will ask some questions about your medical history and help get you set up with a doctor in the community. Prescriptions: No Action fluoxetine 20 mg capsule PO DAILY cefuroxime axetil 500 mg tablet 500 mg PO BID benzonatate 200 mg capsule PO quetiapine 25 mg tablet PO BEDTIME propranolol 20 mg tablet PO Referrals: Shasha Alegria MD [Primary Care Provider] - Stand Alone Forms: Patient Portal/API/Survey
--- NOTE | 2024-09-04 09:49 | DI.CT.S_ITS ---
PROCEDURE: CT ABDOMEN PELVIS W CON INDICATIONS: right sided flank and abd pain TECHNIQUE: After the administration of intravenous contrast, axial sections acquired from the lung bases to the pubic symphysis. Coronal and sagittal reformats were performed. For radiation dose reduction, the following was used: automated exposure control, adjustment of mA and/or kV according to patient size. COMPARISON: None. FINDINGS: Image quality: Diagnostic. Lower Chest: No significant findings. ABDOMEN: Liver: No solid mass. Gallbladder: No radiopaque gallstones or wall thickening. Biliary ducts: No biliary dilation. Pancreas: No ductal dilation. Spleen: Size is within normal limits. Adrenal Glands: No adrenal nodules. Kidneys and Ureters: No hydronephrosis. No solid mass. No complex renal cystic lesion which requires follow up. Stomach and Bowel: Normal colonic caliber, without significant wall thickening. Normal appendix. Peritoneum: No abnormal intraperitoneal fluid. No free air. Ventral Wall: No significant ventral hernia. Abdominal Nodes: No retroperitoneal or mesenteric adenopathy by size criteria. Vessels: Aorta and inferior vena cava are normal in size. PELVIS: Pelvic Organs: Unremarkable. Bladder: No bladder wall thickening, accounting for underdistention. Pelvic Nodes: No enlarged lymph nodes. Miscellaneous: No inguinal hernias are seen. Bones: No aggressive osseous abnormality. Unilateral left L5 pars defect. IMPRESSION: Normal appendix. No acute abdominal process. No findings which explain right flank pain. Dictated by: Willie Moore M.D. on 09/04/2024 at 10:17 Approved by: Willie Moore M.D. on 09/04/2024 at 10:23
[2024-09-04 09:53] LABS: Add Manual Diff / Slide Review NO; Basophils Absolute Auto 100 /uL (0-100); Basophils Percent Auto 0.6 % (0-2); Eosinophils Absolute Auto 600 /uL (0-450); Eosinophils Percent Auto 6.2 % (2-4); Hematocrit 41.7 % (36-46); Hemoglobin 14.1 g/dL (12.0-16.0); Lymphocytes Absolute Auto 2600 /uL (1100-4500); Lymphocytes Percent Auto 26.7 % (25-40); Mean Corpuscular HGB Conc 33.9 % (30-36); Mean Corpuscular Hemoglobin 30.6 PG (26-34); Mean Corpuscular Volume 90.3 fL (80-100); Monocytes Absolute Auto 800 /uL (0-900); Monocytes Percent Auto 8.1 % (3-14); Neutrophils Absolute Auto 5600 /uL (1500-7000); Neutrophils Percent Auto 58.4 % (50-75); Platelet Count 293 X10^3/uL (150-400); Red Blood Cell Count 4.62 X10^6/uL (4.0-5.2); Red Cell Distribution Width 13.2 % (11.6-14.8); White Blood Cell Count 9.7 X10^3/uL (4.5-11.0)
[2024-09-04 09:58] LABS: Alanine Aminotransferase 26 IU/L (<35); Albumin 4.5 g/dL (3.5-5.0); Albumin Globulin Ratio 1.5 (1.0-2.8); Alkaline Phosphatase 67 U/L (38-126); Aspartate Aminotransferase 37 IU/L (14-36); BUN Creatinine Ratio 14.3 (6-22); Bilirubin Total 0.6 mg/dL (0.2-1.3); Blood Urea Nitrogen 9 mg/dL (7-17); Calcium 8.9 mg/dL (8.4-10.2); Carbon Dioxide 24 mmol/L (22-32); Chloride 104 mmol/L (98-107); Estimated Glomerular Filt Rate > 60 mL/min (>60); Glucose 89 mg/dL (70-100); HEMOLYSIS 28 (0-50); Lipase 129 U/L (23-300); Potassium 3.7 mmol/L (3.4-5.1); Sodium 137 mmol/L (137-145); Total Protein 7.5 g/dL (6.3-8.2)
[2024-09-04 10:03] LABS: Ictotest Urine Negative (Negative)
[2024-09-04 10:07] LABS: Magnesium 1.9 mg/dL (1.6-2.3)
[2024-09-04] MEDS: KETOROLAC 30 MG/ML VIAL IV (10:10)
[2024-09-04] MEDS: ONDANSETRON 4 MG/2 ML INJ IV (10:10)
[2024-09-04] MEDS: SODIUM CHLORIDE 0.9% 1,000 ML 1000 ML IV (10:10)
== END 2024-09-04 10:57 | disposition home or self-care (01) ==
PROVIDERS: Emergency Provider Student in an Organized Health Care Education/Training Program; PCP Family Medicine
DX: R10.9 Unspecified abdominal pain (principal)
CPT/HCPCS: 0241U; 36415; 74177; 80053; 81003; 81025; 83690; 83735; 85025; 96361; 96374; 96375; 99284; J1885; J2405